=== PATIENT | female | born 1995 | race Caucasian/White ===

== ENCOUNTER 2019-04-27 07:43 | Emergency (ER) | payer OTHER ==
[~2019-04-27] VITALS: Ht 162.6 cm; Wt 77.1 kg
[2019-04-27] MEDS ORDERED: LEVSOD100 PO (07:52)
[2019-04-27] MEDS ORDERED: Ultram50 MG PO (08:30)
[2019-04-27] MEDS ORDERED: ALBU90OI INH (08:30)
[2019-04-27] MEDS ORDERED: Zithromax250 MG PO (08:30)
[2019-04-27] MEDS ORDERED: Robaxin-750750 MG PO (08:30)
[2019-04-27] MEDS ORDERED: Prednisone20 MG PO (08:33)
== END 2019-04-27 08:41 | disposition home or self-care (01) ==
LOC: ER 07:43
DX: S39.012A Strain of muscle, fascia and tendon of lower back, initial encounter (principal); J40 Bronchitis, not specified as acute or chronic; Z79.899 Other long term (current) drug therapy; W19.XXXA Unspecified fall, initial encounter
CPT/HCPCS: 94640; 99283-25; J7512

== ENCOUNTER 2019-05-06 21:37 | Emergency (ER) | payer OTHER ==
[~2019-05-06] VITALS: Ht 162.6 cm; Wt 77.1 kg
[~2019-05-06 21:37] MED LIST: ALBU90OI INH; LEVSOD100 PO; Prednisone20 MG PO; Robaxin-750750 MG PO; Ultram50 MG PO; Zithromax250 MG PO
[2019-05-06] MEDS ORDERED: CODEINE-GUAIFE120 ML PO (23:39)
[2019-05-06] MEDS ORDERED: CYCL10 PO (23:39)
== END 2019-05-07 00:10 | disposition home or self-care (01) ==
LOC: ER 21:37
DX: S29.012A Strain of muscle and tendon of back wall of thorax, initial encounter (principal); J40 Bronchitis, not specified as acute or chronic; X58.XXXA Exposure to other specified factors, initial encounter
CPT/HCPCS: 71046; 94644; 99283-25; J1100

== ENCOUNTER 2019-07-08 12:50 | Emergency (ER) | payer OTHER ==
[~2019-07-08] VITALS: Ht 162.6 cm; Wt 77.1 kg
[~2019-07-08 12:50] MED LIST changes: +CODEINE-GUAIFE120 ML PO; +CYCL10 PO
[2019-07-08] MEDS ORDERED: PARO20 PO ×2 (13:01→14:06)
[2019-07-08] MEDS ORDERED: EUTHYROX100 MCG PO (14:06)
[2019-07-08] MEDS ORDERED: ALBU90OI INH (14:06)
== END 2019-07-08 15:43 | disposition home or self-care (01) ==
LOC: ER 12:50
DX: J45.909 Unspecified asthma, uncomplicated (principal); E03.9 Hypothyroidism, unspecified; Z79.899 Other long term (current) drug therapy
CPT/HCPCS: 71046; 81025; 94640; 99284-25

== ENCOUNTER 2019-07-28 21:12 | Emergency (ER) | payer OTHER ==
[~2019-07-28] VITALS: Ht 162.6 cm; Wt 77.1 kg
[~2019-07-28 21:12] MED LIST changes: +EUTHYROX100 MCG PO; +PARO20 PO
[2019-07-28 23:09] LABS: Influenza A Negative (NEGATIVE); Influenza B Negative (NEGATIVE)
[2019-07-28] MEDS ORDERED: Prednisone20 MG PO (23:38)
[2019-07-28] MEDS ORDERED: BENZ100A PO (23:38)
== END 2019-07-29 | disposition home or self-care (01) ==
LOC: ER 21:12
PROVIDERS: Physician Assistant
DX: J45.901 Unspecified asthma with (acute) exacerbation (principal); Z79.899 Other long term (current) drug therapy; Z79.51 Long term (current) use of inhaled steroids
CPT/HCPCS: 71046; 87804; 94644; 99285-25; J7512

== ENCOUNTER 2019-07-29 02:37 | Emergency (ER) | payer OTHER ==
[~2019-07-29] VITALS: Ht 162.6 cm; Wt 77.1 kg
[~2019-07-29 02:37] MED LIST changes: +BENZ100A PO
== END 2019-07-29 04:00 | disposition home or self-care (01) ==
LOC: ER 02:37
DX: J45.901 Unspecified asthma with (acute) exacerbation (principal); F17.200 Nicotine dependence, unspecified, uncomplicated; Z79.899 Other long term (current) drug therapy; Z79.52 Long term (current) use of systemic steroids; Z79.51 Long term (current) use of inhaled steroids
CPT/HCPCS: 94640; 99284-25

== ENCOUNTER 2021-07-17 20:26 | Emergency (ER) | payer OTHER ==
[~2021-07-17] VITALS: Ht 162.6 cm; Wt 77.1 kg
[~2021-07-17 20:26] MED LIST changes: +DULO60; +PRED20 PO
== END 2021-07-17 23:16 | disposition home or self-care (01) ==
LOC: ER 20:26
DX: S61.011A Laceration without foreign body of right thumb without damage to nail, initial encounter (principal); W26.8XXA Contact with other sharp object(s), not elsewhere classified, initial encounter; Z79.899 Other long term (current) drug therapy; Z79.52 Long term (current) use of systemic steroids; J45.909 Unspecified asthma, uncomplicated; F17.200 Nicotine dependence, unspecified, uncomplicated
CPT/HCPCS: 12001; 99282-25; A9270